=== PATIENT | female | born 1955 | race Caucasian/White ===

== ENCOUNTER 2017-09-20 01:15 | Emergency (ER) | payer OTHER ==
[2017-09-20 01:21] VITALS: RESP 16; TEMP 98.4; O2SAT 98
--- NOTE | 2017-09-20 01:49 | EDPHY ---
H & P Stated Complaint: R 1st finger laceration Time Seen by Provider: 09/20/17 01:27 HPI/ROS: Chief Complaint: Thumb laceration HPI: 62-year-old woman sustained a laceration to her right thumb when she cut it on a new kitchen knife about 4 hours ago. She is up-to-date in her tetanus. Denies any other injuries. ROS: 10 point Review of Systems is negative except as noted in the HPI. Physical exam: general: Awake, alert, no acute distress Right thumb. She has a 1.5 cm cruciate laceration on distal left thumb, no nail bed involvement. Capillary refills less than 2 seconds. Sensations intact. She has full flexion extension strength. Skin: No rash - Personal History Current Tetanus/Diphtheria Vaccine: Yes Tetanus Vaccine Date: 2012 - Medical/Surgical History Hx Asthma: No Hx Chronic Respiratory Disease: No Hx Diabetes: No Hx Cardiac Disease: No Hx Renal Disease: No Hx Cirrhosis: No Hx Alcoholism: No Hx HIV/AIDS: No Hx Splenectomy or Spleen Trauma: No Other PMH: PMHx: Arthritis, myasthenia gravis-like condition, pulmonary embolism. PSHx: tonsillectomy - Social History Smoking Status: Never smoked Constitutional: Initial Vital Signs Temperature (C) 36.9 C 09/20/17 01:18 Heart Rate 74 09/20/17 01:18 Respiratory Rate 16 09/20/17 01:18 Blood Pressure 129/68 H 09/20/17 01:18 O2 Sat (%) 98 09/20/17 01:18 O2 Delivery Mode Room Air Allergies/Adverse Reactions: cephalexin monohydrate [From Keflex] Allergy (Intermediate, Verified 11/11/14 16 :50) severe vomiting amoxicillin trihydrate [From Augmentin] Allergy (Mild, Verified 11/11/14 16:50) GI upset potassium clavulanate [From Augmentin] Allergy (Mild, Verified 11/11/14 16:50) GI upset Home Medications: Medication Instructions Recorded Estring 1 christiano VG Q90D 11/11/14 Medical Decision Making Procedures: Procedure: Laceration repair. Verbal consent was obtained from the patient. The 1.5 cm laceration on the right thumb was anesthetized in the usual fashion. The wound was irrigated, draped and explored to its base with a gloved finger. There were no deep structures involved. No tendon injury was identified. The wound was repaired with 5, 6-0 Ethilon simple interrupted sutures. The wound repair was uncomplicated. The procedure was performed by myself. Departure - Departure Disposition: Home, Routine, Self-Care Clinical Impression: Laceration Condition: Good Instructions: Laceration (ED), Care For Your Stitches (ED) Additional Instructions: Sutures need to be removed in 7 days. Return to the emergency department for increasing redness, discharge from the wound, fevers, chills, or any other concerns. Referrals: NONE *PRIMARY CARE P,. [Primary Care Provider] - As per Instructions
[2017-09-20 02:31] VITALS: BP 140/88; PULSE 70
== END 2017-09-28 13:06 | disposition home or self-care (01) ==
PROC: 0HQFXZZ Repair Right Hand Skin, External Approach (ICD-10-PCS; principal; 2017-09-20)
DX: S61.011A Laceration without foreign body of right thumb without damage to nail, initial encounter (principal); W26.0XXA Contact with knife, initial encounter; Y99.8 Other external cause status